=== PATIENT | female | born 1930 | race African-American/Black ===

== ENCOUNTER 2017-09-26 08:27 | Inpatient (IN) ==
[2017-09-26] MEDS ORDERED: diphenhydrAMINE 50 MG/1 ML VIAL IV STA (09:30)
[2017-09-26] MEDS ORDERED: FAMOTIDINE 20 MG/2 ML VIAL IV STA (09:30)
[2017-09-26] MEDS ORDERED: methylPREDNISolone SOD SUC 125 MG/2 ML VIAL IV STA (09:30)
[2017-09-26] MEDS ORDERED: hydrALAZINE 20 MG/1 ML VIAL IV STA (09:30)
[2017-09-26] MEDS ORDERED: EPINEPHrine 1 MG/ML VIAL SUBCUT STA (09:30)
[2017-09-26 09:56] LABS: Basophils % 0.5 % (0.0-0.8); Eosinophils # 0.1 10*3/uL (0.0-0.87); Eosinophils % 1.4 % (0.00-10.9); Hematocrit 41.2 VOL% (35.7-47.0); Hemoglobin 13.2 GM/DL (12.0-16.0); Immature Granulocytes % 0.2 %; Immature Granulocytes Absolute 0.01 #; Lymphocytes # 1.9 10*3/uL (1.4-4.0); Lymphocytes % 29.1 % (21.3-54.2); Mean Corpuscular Hemoglobin 28 PG (27-34); Mean Corpuscular Volume 87.5 FL (87-102); Mean Platelet Volume 11.3 FL (9.6-12.0); Monocytes # 0.6 10*3/uL (0.11-0.8); Monocytes % 8.6 % (1.7-12.7); Neutrophils # 3.9 10*3/uL (1.4-7.4); Neutrophils % 60.2 % (38.7-73.9); Platelet Count 201 T/CUMM (130-400); Red Blood Count 4.71 MC/CUMM (3.8-5.5); White Blood Count 6.4 T/CUMM (4-12)
[2017-09-26 09:58] LABS: Albumin 3.3 G/DL (3.4-5.0); Bilirubin,Total 0.6 MG/DL (0.2-1.0); Calcium 8.5 MG/DL (8.5-10.1); Potassium 3.4 MMOL/L (3.5-5.1); Total Protein 7.2 G/DL (6.4-8.3)
[2017-09-26] MEDS ORDERED: LACTULOSE 20 GM/30 ML UDCUP PO PRN (13:30)
[2017-09-26] MEDS ORDERED: ONDANSETRON 4 MG/2 ML VIAL IV PRN (13:30)
[2017-09-26] MEDS ORDERED: DOCUSATE SODIUM 100 MG CAPSULE PO PRN (13:30)
[2017-09-26] MEDS: SODIUM CHLORIDE 0.9% 1,000 ML IV SCH (16:02)
[2017-09-27 05:34] LABS: Hematocrit 35.8 VOL% (35.7-47.0); Hemoglobin 11.8 GM/DL (12.0-16.0); Immature Granulocytes % 0.2 %; Immature Granulocytes Absolute 0.01 #; Lymphocytes % 16.8 % (21.3-54.2); Mean Corpuscular Hemoglobin 28 PG (27-34); Mean Corpuscular Volume 85.2 FL (87-102); Mean Platelet Volume 11.3 FL (9.6-12.0); Monocytes # 0.3 10*3/uL (0.11-0.8); Monocytes % 5.3 % (1.7-12.7); Neutrophils # 4.4 10*3/uL (1.4-7.4); Neutrophils % 77.7 % (38.7-73.9); Platelet Count 179 T/CUMM (130-400); White Blood Count 5.7 T/CUMM (4-12)
[2017-09-27 06:16] LABS: Calcium 8.3 MG/DL (8.5-10.1); Osmolality,Calculated 282.8 MOS/KG (273-304); Potassium 3.2 MMOL/L (3.5-5.1); Risk Ratio 3.28; VLDL CHOLESTEROL 16.2 MG/DL
[2017-09-27] MEDS: LEVOTHYROXINE 125 MCG TABLET PO SCH (06:35)
[2017-09-27] MEDS: SODIUM CHLORIDE 0.9% 1,000 ML IV SCH ×3 (07:29→21:10)
[2017-09-27] MEDS ORDERED: diphenhydrAMINE 50 MG/1 ML VIAL IV PRN (08:27)
[2017-09-27] MEDS ORDERED: hydroCHLOROthiazide 12.5 MG CAPSULE PO SCH (09:00)
[2017-09-27] MEDS: ATENOLOL 50 MG TABLET PO SCH (09:16)
[2017-09-27] MEDS: PANTOPRAZOLE 40 MG TABLET PO SCH (09:16)
[2017-09-27] MEDS: POTASSIUM CHLORIDE 10 MEQ TABLET PO SCH (09:16)
[2017-09-27] MEDS: ASPIRIN CHEW 81 MG TABLET PO SCH (09:16)
[2017-09-27] MEDS: methylPREDNISolone SOD SUC 40 MG/1 ML VIAL IV SCH ×2 (10:27→21:04)
[2017-09-27] MEDS: hydrALAZINE 20 MG/1 ML VIAL IV PRN ×2 (15:29→23:27)
[2017-09-27] MEDS: CETIRIZINE 10 MG TABLET PO SCH (21:04)
[2017-09-27] MEDS: hydrALAZINE 10 MG TABLET PO SCH (21:04)
[2017-09-27] MEDS: ACETAMINOPHEN 325 MG TABLET PO PRN (23:35)
[2017-09-28 05:26] LABS: Hematocrit 38.1 VOL% (35.7-47.0); Hemoglobin 12.2 GM/DL (12.0-16.0); Immature Granulocytes % 0.5 %; Immature Granulocytes Absolute 0.03 #; Lymphocytes # 0.8 10*3/uL (1.4-4.0); Lymphocytes % 12.5 % (21.3-54.2); Mean Corpuscular Hemoglobin 28 PG (27-34); Mean Corpuscular Volume 87.8 FL (87-102); Mean Platelet Volume 11.2 FL (9.6-12.0); Monocytes # 0.1 10*3/uL (0.11-0.8); Monocytes % 1.6 % (1.7-12.7); Neutrophils # 5.4 10*3/uL (1.4-7.4); Neutrophils % 85.4 % (38.7-73.9); Platelet Count 179 T/CUMM (130-400); Red Blood Count 4.34 MC/CUMM (3.8-5.5); Red Cell Distribution Width 15.2 % (9.3-17.3); White Blood Count 6.3 T/CUMM (4-12)
[2017-09-28 05:42] LABS: Potassium 3.1 MMOL/L (3.5-5.1)
[2017-09-28] MEDS: LEVOTHYROXINE 125 MCG TABLET PO SCH (06:35)
[2017-09-28] MEDS: ACETAMINOPHEN 325 MG TABLET PO PRN (07:43)
[2017-09-28] MEDS: SODIUM CHLORIDE 0.9% 1,000 ML IV SCH ×2 (08:18→18:38)
[2017-09-28] MEDS: ATENOLOL 50 MG TABLET PO SCH (08:40)
[2017-09-28] MEDS: POTASSIUM CHLORIDE 10 MEQ TABLET PO SCH (08:40)
[2017-09-28] MEDS: PANTOPRAZOLE 40 MG TABLET PO SCH (08:40)
[2017-09-28] MEDS: methylPREDNISolone SOD SUC 40 MG/1 ML VIAL IV SCH ×2 (08:40→21:05)
[2017-09-28] MEDS: hydrALAZINE 10 MG TABLET PO SCH (08:40)
[2017-09-28] MEDS: ASPIRIN CHEW 81 MG TABLET PO SCH (08:40)
[2017-09-28] MEDS: hydrALAZINE 25 MG TABLET PO SCH ×2 (10:16→21:06)
[2017-09-28] MEDS: cloNIDine 0.1 MG TABLET PO PRN (12:30)
[2017-09-28] MEDS ORDERED: cloNIDine 0.1 MG/24 HR PATCH TRANSDERM SCH (17:00)
[2017-09-28] MEDS: CETIRIZINE 10 MG TABLET PO SCH (21:06)
[2017-09-29] MEDS: cloNIDine 0.1 MG TABLET PO PRN (03:15)
[2017-09-29 04:16] LABS: Hematocrit 36.9 VOL% (35.7-47.0); Immature Granulocytes % 0.3 %; Immature Granulocytes Absolute 0.02 #; Lymphocytes # 0.7 10*3/uL (1.4-4.0); Lymphocytes % 12.3 % (21.3-54.2); Mean Corpuscular HGB Conc 32.5 GM/DL (32-36); Mean Corpuscular Hemoglobin 28 PG (27-34); Monocytes # 0.1 10*3/uL (0.11-0.8); Monocytes % 2.2 % (1.7-12.7); Neutrophils % 85.2 % (38.7-73.9); Platelet Count 184 T/CUMM (130-400); Red Blood Count 4.29 MC/CUMM (3.8-5.5); Red Cell Distribution Width 15.4 % (9.3-17.3); White Blood Count 5.8 T/CUMM (4-12)
[2017-09-29 04:45] LABS: Calcium 8.4 MG/DL (8.5-10.1); Osmolality,Calculated 287.4 MOS/KG (273-304); Potassium 3.4 MMOL/L (3.5-5.1)
[2017-09-29] MEDS: LEVOTHYROXINE 125 MCG TABLET PO SCH (06:13)
[2017-09-29] MEDS: SPIRONOLACTONE 50 MG TABLET PO SCH (08:13)
[2017-09-29] MEDS: hydrALAZINE 25 MG TABLET PO SCH ×3 (08:14→21:18)
[2017-09-29] MEDS: PANTOPRAZOLE 40 MG TABLET PO SCH (08:14)
[2017-09-29] MEDS: ASPIRIN CHEW 81 MG TABLET PO SCH (08:14)
[2017-09-29] MEDS: ATENOLOL 50 MG TABLET PO SCH (08:15)
[2017-09-29] MEDS: hydrALAZINE 20 MG/1 ML VIAL IV PRN ×2 (11:51→23:13)
[2017-09-29] MEDS: CETIRIZINE 10 MG TABLET PO SCH (21:19)
[2017-09-30 05:31] LABS: Calcium 8.1 MG/DL (8.5-10.1); Osmolality,Calculated 290.1 MOS/KG (273-304); Potassium 3.2 MMOL/L (3.5-5.1)
[2017-09-30] MEDS: LEVOTHYROXINE 125 MCG TABLET PO SCH (06:44)
[2017-09-30 08:22] VITALS: BP 191/84
[2017-09-30] MEDS: ACETAMINOPHEN 325 MG TABLET PO PRN (09:00)
[2017-09-30] MEDS: SPIRONOLACTONE 50 MG TABLET PO SCH (09:01)
[2017-09-30] MEDS: ATENOLOL 50 MG TABLET PO SCH (09:01)
[2017-09-30] MEDS: PANTOPRAZOLE 40 MG TABLET PO SCH (09:01)
[2017-09-30] MEDS: ASPIRIN CHEW 81 MG TABLET PO SCH (09:01)
[2017-09-30] MEDS: hydrALAZINE 25 MG TABLET PO SCH (09:01)
== END 2017-09-30 10:19 | disposition home or self-care (01) | DRG 916 ==
LOC: N.EDINP 08:27 → N.ED 08:27 → SUATTDRO 10:55 → N.TELES 14:50
PROVIDERS: ADMIT Internal Medicine; ATTEND Internal Medicine